=== PATIENT | female | born 1995 | race Caucasian/White ===

== ENCOUNTER → 2021-01-18 | Outpatient (CLI) | payer OTHER ==
[~2021-01-18] MED LIST: ZOFR4TAB14 PO; bactrim ds PO; ceftin PO; ferrous sulfate PO; hydroxyzine PO; motrin PO; pyridium PO; tylenol PO
--- NOTE | 2021-01-18 16:50 | REP ---
INDICATION: UNSPECIFIED LUMP IN RIGHT BREAST,SUBAROLAR. COMPARISON: None TECHNIQUE: Ultrasonographic evaluation of a new palpable mass in the retroareolar region right breast discovered 1 month ago FINDINGS: In the retroareolar region of the right breast where there is a clinically palpable mass a solid nodule is seen which measures approximately 1.8 x 1.4 x 1.9 cm. IMPRESSION: New solid right retroareolar breast mass as described above. Vascular flow is seen within the solid mass. Although in this age group this likely represents a fibroadenoma as malignancy in this age is rare, I would recommend a consult with a breast surgeon for more detailed physical exam and clinical correlation in assessment for possible biopsy. ACR category 4 <Electronically signed by Josh Fulton > 01/18/21 [id number]
== END ==
LOC: M RAD 15:56
PROVIDERS: ATTEND Student in an Organized Health Care Education/Training Program
DX: R92.8 Other abnormal and inconclusive findings on diagnostic imaging of breast (principal)

== ENCOUNTER → 2021-03-02 | Outpatient (CLI) | payer OTHER ==
[2021-03-02 08:50] VITALS: BP 118/78
--- NOTE | 2021-03-09 10:41 | ROOPDOC ---
[facility] Report Of Operation Report of Operation DATE OF PROCEDURE: 03/02/21 DIAGNOSIS: right breast suspicious lesion PROCEDURE: ultrasound guided biopsy of the right breast suspicious lesion with clip placement SURGEON: Janey Prieto BLOOD LOSS: minimal COMPLICATIONS: none Lidocaine 1% LOT [id number] Expiration 10/2024 Sodium Bicarbonate 8.4% LOT [id number] Expiration 10/2021 Hydromark clip LOT [id number] Expiration 07/2023 SHAPE : 4 Bx device: BARD [id number] x10 cm LOT [id number] Expiration 12/2023 Informed consent was obtained. The most common risk and possible complications including bleeding, hematoma, bruising, infection, injury to surrounding structures were explained to the patient and the patient expressed understanding. Patient was placed on the bed in the supine position. Appropriate time out was done stating patients name, date of , and the procedure to be performed. The right breast was prepped and draped in the usual fashion. The ultrasound was used to confirm the location of the lesion in the right breast at the medial retroareolar site. Plain Lidocaine 1% and 8.4% sodium bicarbonate 10:1 mix was used to anesthetize the skin, the biopsy site and tissues along the anticipated biopsy tract. Small skin incision was made with blade number 11. BARD Marquee 14G cannula with introducer ([id number]) was inserted through the incision and advanced under the ultrasound guidance to position immediately adjacent to the lesion. Next, the introducer was removed and BARD Marquee 14G biopsy device was places in the cannula. Pre-biopsy imaging, and post-biopsy imaging were captured. Five good core biopsies were taken at various levels of the lesion. Specimen was placed in formaldehyde, labeled with appropriate biopsy site and patients name, and sent to pathology for evaluation. Next, the biopsy device was withdrawn and a clip introducer was inserted into the biopsy site via the cannula. SHAPE 4 Hydromark clip was deployed under sonographic guidance. Post-clip placement image was captured. Manual pressure over the biopsy cavity and tract was held after the clip introducer was withdrawn. No bleeding was noted upon removal of the pressure. Post-biopsy mammogram of the right breast was not done as patient is lactating. Patient tolerated procedure well. Discharge instructions were discussed with the patient and the patient expressed understanding. JANEY PRIETO DO Mar 09, 2021 10:41
== END ==
LOC: M WHCPRO 06:37
PROVIDERS: ATTEND Surgery
DX: N60.21 Fibroadenosis of right breast (principal)